=== PATIENT | male | born 1995 | race Two or more races ===

== ENCOUNTER 2022-08-16 10:53 | Emergency (ER) | payer MEDICAID, OTHER ==
[~2022-08-16] VITALS: Ht 170.2 cm; Wt 125.0 kg
[2022-08-16 11:24] VITALS: BP 135/70
[2022-08-16] MEDS ORDERED: IBUP-1456 PO (11:46)
[2022-08-16] MEDS ORDERED: CEPH500C PO (11:46)
== END 2022-08-16 11:58 | disposition home or self-care (01) ==
LOC: ER 10:53
DX: B35.3 Tinea pedis (principal)